=== PATIENT | female | born 1940 | race Caucasian/White ===

== ENCOUNTER 2017-06-07 18:32 | Emergency (ER) | payer MEDICARE, OTHER ==
[~2017-06-07] VITALS: Ht 165.1 cm; Wt 52.0 kg
[2017-06-07 18:48] VITALS: BP 167/65
[2017-06-07] MEDS ORDERED: METO25TA6 PO (18:53)
[2017-06-07] MEDS ORDERED: RIVA20TA PO (18:53)
[2017-06-07] MEDS ORDERED: LEVO50TA PO (18:54)
[2017-06-07 20:10] LABS: BASOPHILS % 0.9 % (0.0-2.0); EOSINOPHILS % 3.5 % (0.0-5.0); HEMATOCRIT. 40.5 % (36.0-48.0); HEMOGLOBIN. 13.4 g/dL (12.0-16.0); LYMPHOCYTES % 53.9 % (20.0-50.0); MEAN CORPUSCULAR HEMOGLOBIN 30.8 pg (28.0-32.0); MEAN CORPUSCULAR VOLUME 93.3 fL (81.0-99.0); MEAN PLATELET VOLUME 9.4 fl (7.4-10.4); MONOCYTES % 12.4 % (2.0-8.0); NEUTROPHILS % 29.3 % (40.0-76.0); PLATELET 158 x1000/uL (130-400); RED BLOOD CELL COUNT 4.34 mill/uL (4.2-5.4); RED CELL DISTRIBUTION WIDTH 13.6 % (11.6-14.6)
[2017-06-07 20:13] LABS: CHLORIDE 101 mEq/L (98-107)
[2017-06-07 20:22] LABS: CARBON DIOXIDE 28 mEq/L (21-32)
[2017-06-07] MEDS ORDERED: SODIUM POLYSTYRENE SULFONATE 15 G/60 ML BOT PO ONE (20:45)
== END 2017-06-07 21:25 | disposition home or self-care (01) ==
LOC: ER 18:32
DX: E87.5 Hyperkalemia (principal); I48.91 Unspecified atrial fibrillation; E03.9 Hypothyroidism, unspecified; Z79.01 Long term (current) use of anticoagulants; Z87.891 Personal history of nicotine dependence
CPT/HCPCS: 36415; 80053; 80162; 85025; 93005; 99285